=== PATIENT | male | born 1965 | race Caucasian/White ===

== ENCOUNTER 2020-01-22 16:50 | Emergency (ER) | payer OTHER ==
[~2020-01-22] VITALS: Ht 185.4 cm; Wt 83.0 kg
[2020-01-22] MEDS ORDERED: ZOLOFT25 MG PO (17:12)
[2020-01-22] MEDS ORDERED: ZETIA10 MG PO (17:13)
[2020-01-22] MEDS ORDERED: PROSTATE MED (17:13)
[2020-01-22] MEDS ORDERED: CRESTOR10 MG PO (17:13)
[2020-01-22 18:05] LABS: ABSOLUTE LYMPHOCYTES 1.3 thou/uL (0.8-5.3); ABSOLUTE MONOCYTES 0.6 thou/uL (0.0-1.2); ABSOLUTE NEUTROPHILS 9.2 thou/uL (1.6-8.1); BASOPHILS 0.3 %; EOSINOPHILS 0.1 %; HEMATOCRIT 43.2 % (42.0-52.0); HEMOGLOBIN 14.9 gm/dL (14.0-18.0); LYMPHOCYTES 11.5 %; MCH 30.7 pg (26.0-34.0); MCHC 34.5 g/dL (28.0-37.0); MCV 88.9 fL (80.0-100.0); MONOCYTES 5.2 %; MPV 9.6 fl. (7.2-11.1); NUCLEATED RBCS 0 /100WBC; PLATELET COUNT* 187 thou/uL (150-400); POLYS 82.9 %; RBC 4.86 mil/uL (4.50-6.00); WBC 11.1 thou/uL (4.0-11.0)
[2020-01-22 18:14] LABS: CALCIUM 8.6 mg/dL (8.5-10.1)
[2020-01-22 18:17] LABS: APTT 25.4 Seconds (25.0-31.3); INR 1.1; PROTIME 10.9 Seconds (9.20-11.50)
[2020-01-22 18:25] LABS: ALBUMIN 4.1 g/dL (3.4-5.0); MAGNESIUM 1.7 mg/dL (1.8-2.4); TOTAL BILIRUBIN 1.1 mg/dL (<0.1-1.0); TOTAL PROTEIN 6.9 g/dL (6.4-8.2)
[2020-01-22 18:38] LABS: URINE BILIRUBIN NEGATIVE (Negative); URINE BLOOD NEGATIVE (Negative); URINE CLARITY CLEAR; URINE COLOR YELLOW; URINE GLUCOSE-RANDOM NEGATIVE (Negative); URINE KETONES NEGATIVE (Negative); URINE LEUKOCYTES-REFLEX NEGATIVE (Negative); URINE NITRITE-REFLEX NEGATIVE (Negative); URINE PROTEIN NEGATIVE (Negative); URINE UROBILINOGEN 0.2 E.U./dl (0.2-1.0)
[2020-01-22 19:07] VITALS: BP 124/61
--- NOTE | 2020-01-23 13:14 | EKG ---
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[facility] : 1965 Requested By: Emilee Mcginnis Order Number: [id number] MD: Donovan Hernandez Measurements Intervals [place] Rate: 70 P: 51 CA: 182 QRS: -9 QRSD: 103 T: 63 QT: 408 QTc: 441 Interpretive Statements Sinus rhythm RSR' in V1 or V2, probably normal variant No previous ECG available for comparison Electronically Signed On 01-23-2020 13:12:43 CDT by Donovan Hernandez [email or web address] <ELECTRONICALLY SIGNED> By: Donovan Hernandez MD, [facility] 01/23/20 1312 1748 1748 Donovan Hernandez MD, [facility] /EPI
== END 2020-01-22 19:07 | disposition home or self-care (01) ==
LOC: M.ERS 16:50
PROVIDERS: Physician Assistant
DX: E83.42 Hypomagnesemia (principal); E87.1 Hypo-osmolality and hyponatremia; R55 Syncope and collapse; I10 Essential (primary) hypertension